=== PATIENT | female | born 1955 | race Caucasian/White ===

== ENCOUNTER 2018-01-28 13:23 | Emergency (ER) | payer OTHER ==
[~2018-01-28] VITALS: Ht 160 cm; Wt 76.2 kg
--- NOTE | ~2018-01-28 | EKG ---
[place], [place] ELECTROCARDIOGRAM REPORT NAME: CRAIG CERRATO UNIT #: [id number] ROOM: DOCTOR: EPIPHBUCKY DRAFT REPORT BIRTHDATE: [birth year] [facility] Test Date: 2018-01-28 Test Time: 14:57:56 Pat Name: CRAIG CERRATO Department: Room: Gender: F Transportation Services Representative: : 1955 Requested By: KATE BUSH Order Number: [id number] Reading MD: Beau Nuno MD Measurements Intervals [place] Rate: 56 P: 54 MS: 156 QRS: 52 QRSD: 95 T: 43 QT: 448 QTc: 433 Interpretive Statements Sinus rhythm Borderline T abnormalities, anterior leads Electronically Signed On 01-28-2018 21:43:05 PDT by Beau Nuno MD CM:EKGRPT:ELECTROCARDIOGRAM REPORT [id number] KATE ULLOA DRAFT REPORT KATE LYONS
[~2018-01-28 13:23] MED LIST: 'PARAFON FORTE500 M1 PO; ALPRAZOLAM XR0.5 MG PO; ANTIVERT25 MG PO; B12,B-12,B 12500 MC1 PO; CARVEDILOL3.125 MG PO; CLARITIN10 MG PO; CYCLOBENZAPRINE10 MG PO; FLUOXETINE40 MG PO; LEVOTHYROXINE0.05 MG PO; LOVASTATIN40 MG PO; MIRALAX POWDER17 G1 PO; NAPROSYN500 MG PO; PERCOCET 325 MG1 TA2 PO; PRAVACHOL20 MG PO; PROMETHAZINE PO; PROTONIX40 MG PO; PROVENTIL0.09 MG/AC IH; SINGULAIR10 MG PO; SYNTHROID,LEVO88 MCG PO; Synthroid,Lev100 MCG PO; TRAMADOL HCL50 MG; ULTRAM50 MG PO; VICODIN ES 7501 TAB PO; VOLTAREN50 M1 PO; ZITHROMAX Z PA250 MG PO; ZOFRAN ODT4 MG SL
[2018-01-28] MEDS ORDERED: ASPIRIN ADULT L81 M1 PO (13:54)
[2018-01-28 15:11] LABS: HEMATOCRIT 32.5 % (37.0-47.0); HEMOGLOBIN 10.7 g/dl (12.0-16.0); MEAN CELL VOLUME 88.8 fl (81.0-99.0); MEAN CORPUSCULAR HGB 29.2 pg (27.0-31.0); MEAN CORPUSCULAR HGB CONC 32.9 g/dl (33.0-37.0); MEAN PLATELET VOLUME 9.1 fl (9.6-12.3); PLATELET COUNT AUTOMATED 181 10*3/uL (130-400); RED BLOOD COUNT 3.66 10*6/uL (4.10-5.10); RED CELL DISTRI WIDTH 12.7 % (0-14.5); WHITE BLOOD COUNT 2.6 10*3/uL (4.8-10.8)
[2018-01-28 15:23] LABS: BILIRUBIN NEGATIVE (NEGATIVE); BLOOD TRACE-INTACT (NEGATIVE); CLARITY CLEAR (CLEAR); COLOR YELLOW (YELLOW); GLUCOSE NEGATIVE (NEGATIVE); KETONE TRACE (NEGATIVE); LEUKO ESTERASE NEGATIVE (NEGATIVE); NITRITE NEGATIVE (NEGATIVE); PH 5.5 (5.0-9.0); SPECIFIC GRAVITY 1.025 (1.005-1.030); UROBILINOGEN 0.2 E.U./dl (0.2-1.0)
[2018-01-28 15:27] LABS: ALBUMIN 3.7 gm/dl (3.1-4.5); ALKALINE PHOSPHATASE 92 U/L (45-117); BUN 10 mg/dl (7-24); CHLORIDE 108 mmol/L (98-107); CREATININE 1.03 mg/dL (0.55-1.02); LIPASE 155 U/L (73-393); POTASSIUM 3.3 mmol/L (3.5-5.1); SGOT/AST 12 IU/L (3-35); SGPT/ALT 10 U/L (12-78); SODIUM 144 mmol/L (136-145); TOTAL PROTEIN 7.2 gm/dL (6.4-8.2); TROPONIN I < 0.015 ng/ml (<0.045)
[2018-01-28 15:31] LABS: ACT PARTIAL THROMBO TIME 22.7 SECONDS (20.8-31.5)
[2018-01-28 15:39] LABS: ATYPICAL LYMPHS 1 % (0-0); BASOPHILS 3 % (0-1); PLATELET SUFFICIENCY NORMAL (NORMAL); TOTAL CELLS COUNTED 100 #CELLS
[2018-01-28 15:40] LABS: MUCOUS 1+
[2018-01-28 15:41] LABS: BACTERIA TRACE; EPITHELIAL CELLS 50-60; FINE GRANULAR CAST 0-2
[2018-01-28] MEDS ORDERED: MEDI-MECLIZINE25 MG PO (16:30)
== END 2018-01-28 16:30 | disposition home or self-care (01) ==
LOC: ED 13:23
PROVIDERS: Physician Assistant
DX: S40.012A Contusion of left shoulder, initial encounter (principal); R42 Dizziness and giddiness; Z79.899 Other long term (current) drug therapy; Z79.82 Long term (current) use of aspirin; Z88.8 Allergy status to other drugs, medicaments and biological substances; W19.XXXA Unspecified fall, initial encounter; Y93.89 Activity, other specified; Y92.89 Other specified places as the place of occurrence of the external cause; Y99.8 Other external cause status

== ENCOUNTER → 2018-07-11 | Outpatient (CLI) | payer OTHER ==
[~2018-07-11] MED LIST changes: +ASPIRIN ADULT L81 M1 PO; +MEDI-MECLIZINE25 MG PO
== END | disposition home or self-care (01) ==
LOC: ORTHO 03:29
DX: M25.511 Pain in right shoulder (principal); M25.522 Pain in left elbow

== ENCOUNTER → 2018-07-18 | Outpatient (CLI) | payer OTHER | LOC: MRI 09:51 | DX: M75.101 Unspecified rotator cuff tear or rupture of right shoulder, not specified as traumatic (principal); M19.011 Primary osteoarthritis, right shoulder ==

== ENCOUNTER → 2018-07-28 | Outpatient (CLI) | payer OTHER | END | disposition home or self-care (01) | LOC: US 15:58 | DX: E03.9 Hypothyroidism, unspecified (principal); E04.9 Nontoxic goiter, unspecified; R49.0 Dysphonia ==

== ENCOUNTER 2018-08-30 12:53 | Emergency (ER) | payer OTHER ==
[~2018-08-30] VITALS: Ht 160 cm; Wt 76.2 kg
== END 2018-08-30 13:28 | disposition home or self-care (01) ==
LOC: ED 12:53
DX: G89.29 Other chronic pain (principal); M25.511 Pain in right shoulder; M25.512 Pain in left shoulder; Z88.8 Allergy status to other drugs, medicaments and biological substances; Z79.899 Other long term (current) drug therapy; Z79.82 Long term (current) use of aspirin; Z90.710 Acquired absence of both cervix and uterus; Z90.49 Acquired absence of other specified parts of digestive tract

== ENCOUNTER 2018-11-02 16:00 | Emergency (ER) | payer OTHER ==
[~2018-11-02] VITALS: Ht 160 cm; Wt 76.7 kg
[2018-11-02 16:01] VITALS: BP 163/114
[2018-11-02 17:19] LABS: BASO % 1.2 % (0.0-1.0); EOS # 0.1 10*3/uL (0.0-0.4); EOS % 2.4 % (1.0-4.0); HEMATOCRIT 31.1 % (37.0-47.0); HEMOGLOBIN 10.1 g/dl (12.0-16.0); LYMPH # 1.1 10*3/uL (1.3-4.4); LYMPH % 44.7 % (27.0-41.0); MEAN CELL VOLUME 83.2 fl (81.0-99.0); MEAN CORPUSCULAR HGB CONC 32.5 g/dl (33.0-37.0); MEAN PLATELET VOLUME 8.8 fl (9.6-12.3); MONO # 0.2 10*3/uL (0.1-1.0); NEUT # 1.1 10*3/uL (2.3-7.9); NEUT % 42.7 % (47.0-73.0); PLATELET COUNT AUTOMATED 238 10*3/uL (130-400); RED BLOOD COUNT 3.74 10*6/uL (4.10-5.10); RED CELL DISTRI WIDTH 12.8 % (0-14.5); WHITE BLOOD COUNT 2.6 10*3/uL (4.8-10.8)
[2018-11-02 17:33] LABS: ALBUMIN 2.9 gm/dl (3.1-4.5); ALKALINE PHOSPHATASE 102 U/L (45-117); BUN 11 mg/dl (7-24); CHLORIDE 107 mmol/L (98-107); CREATININE 1.03 mg/dL (0.55-1.02); POTASSIUM 3.4 mmol/L (3.5-5.1); SGOT/AST 13 IU/L (3-35); SGPT/ALT 10 U/L (12-78); SODIUM 142 mmol/L (136-145); TOTAL PROTEIN 7.2 gm/dL (6.4-8.2)
== END 2018-11-02 18:08 | disposition home or self-care (01) ==
LOC: ED 16:00
PROVIDERS: Physician Assistant
DX: M25.561 Pain in right knee (principal); M25.562 Pain in left knee; D72.819 Decreased white blood cell count, unspecified; R68.89 Other general symptoms and signs; R25.1 Tremor, unspecified; Z90.710 Acquired absence of both cervix and uterus; Z90.49 Acquired absence of other specified parts of digestive tract; Z88.8 Allergy status to other drugs, medicaments and biological substances; Z79.899 Other long term (current) drug therapy; Z79.82 Long term (current) use of aspirin

== ENCOUNTER → 2018-11-21 | Outpatient (CLI) | payer OTHER ==
[2018-11-21 17:56] LABS: BASO % 1.3 % (0.0-1.0); EOS # 0.1 10*3/uL (0.0-0.4); EOS % 1.9 % (1.0-4.0); HEMATOCRIT 31.3 % (37.0-47.0); HEMOGLOBIN 9.6 g/dl (12.0-16.0); LYMPH # 1.2 10*3/uL (1.3-4.4); LYMPH % 37.7 % (27.0-41.0); MEAN CELL VOLUME 83.9 fl (81.0-99.0); MEAN CORPUSCULAR HGB 25.7 pg (27.0-31.0); MEAN CORPUSCULAR HGB CONC 30.7 g/dl (33.0-37.0); MEAN PLATELET VOLUME 9.5 fl (9.6-12.3); MONO # 0.3 10*3/uL (0.1-1.0); MONO % 10.9 % (3.0-9.0); NEUT # 1.5 10*3/uL (2.3-7.9); NEUT % 48.2 % (47.0-73.0); PLATELET COUNT AUTOMATED 332 10*3/uL (130-400); RED BLOOD COUNT 3.73 10*6/uL (4.10-5.10); RED CELL DISTRI WIDTH 13.2 % (0-14.5); WHITE BLOOD COUNT 3.1 10*3/uL (4.8-10.8)
[2018-11-22 08:09] LABS: HEPATITIS B SURFACE AG Negative (Negative); HEPATITIS C VIRUS ANTIBODY <0.1 s/co (0.0-0.9); RHEUMATOID ARTHRITIS FACTOR 427.6 IU/mL (0.0-13.9)
[2018-11-22 13:06] LABS: ANTI-RNP ANTIBODIES 0.4 AI (0.0-0.9)
[2018-11-23 00:09] LABS: CCP ANTIBODIES IGG/IGA >250 units (0-19); LUPUS DRVVT 45.7 sec (0.0-47.0); PTT-LA 32.2 sec (0.0-51.9)
[2018-11-23 01:06] LABS: LUPUS REFLEX INTERPRETATION Comment: (.)
[2018-11-24 11:05] LABS: HLA-B27 ANTIGEN Negative (.)
== END | disposition home or self-care (01) ==
LOC: LAB 16:55
PROVIDERS: Orthopaedic Surgery
DX: M25.50 Pain in unspecified joint (principal)

== ENCOUNTER 2019-09-28 21:55 | Emergency (ER) | payer OTHER, MEDICAID ==
[~2019-09-28] VITALS: Ht 160 cm; Wt 72.6 kg
[2019-09-28 22:04] VITALS: BP 151/70
== END 2019-09-29 01:30 | disposition home or self-care (01) ==
LOC: ED 21:55
DX: M25.512 Pain in left shoulder (principal); J45.909 Unspecified asthma, uncomplicated; I10 Essential (primary) hypertension; E78.5 Hyperlipidemia, unspecified; E03.9 Hypothyroidism, unspecified; M06.9 Rheumatoid arthritis, unspecified; Z88.8 Allergy status to other drugs, medicaments and biological substances; Z91.040 Latex allergy status; Z88.0 Allergy status to penicillin; Z79.899 Other long term (current) drug therapy; Z79.82 Long term (current) use of aspirin; X58.XXXA Exposure to other specified factors, initial encounter; Y93.89 Activity, other specified; Y92.89 Other specified places as the place of occurrence of the external cause; Y99.8 Other external cause status

== ENCOUNTER 2020-03-12 13:34 | Emergency (ER) | payer OTHER, MEDICAID ==
[~2020-03-12] VITALS: Ht 160 cm
[2020-03-12 14:36] LABS: HEMATOCRIT 31.6 % (37.0-47.0); MEAN CELL VOLUME 91.6 fl (81.0-99.0); MEAN CORPUSCULAR HGB 29.6 pg (27.0-31.0); MEAN CORPUSCULAR HGB CONC 32.3 g/dl (33.0-37.0); PLATELET COUNT AUTOMATED 185 10*3/uL (130-400); RED BLOOD COUNT 3.45 10*6/uL (4.10-5.10); RED CELL DISTRI WIDTH 12.8 % (0-14.5); WHITE BLOOD COUNT 2.3 10*3/uL (4.8-10.8)
[2020-03-12 14:51] LABS: ACT PARTIAL THROMBO TIME 24.2 SECONDS (20.0-32.1)
[2020-03-12 15:00] LABS: ALBUMIN 3.5 gm/dl (3.1-4.5); ALKALINE PHOSPHATASE 109 U/L (45-117); BUN 13 mg/dl (7-24); CHLORIDE 109 mmol/L (98-107); CREATININE 0.98 mg/dL (0.55-1.02); LIPASE 127 U/L (73-393); POTASSIUM 3.5 mmol/L (3.5-5.1); SGOT/AST 8 IU/L (3-35); SGPT/ALT 14 U/L (12-78); SODIUM 142 mmol/L (136-145); TOTAL PROTEIN 7.1 gm/dL (6.4-8.2)
[2020-03-12 15:02] LABS: PLATELET SUFFICIENCY NORMAL (NORMAL); TOTAL CELLS COUNTED 100 #CELLS
[2020-03-12 15:03] LABS: TROPONIN I < 0.015 ng/ml (<0.045)
[2020-03-12 15:49] VITALS: BP 150/56
[2020-03-12 16:11] LABS: COLOR YELLOW (YELLOW)
[2020-03-12 16:12] LABS: BACTERIA 1+; BILIRUBIN NEGATIVE; BLOOD NEGATIVE (NEGATIVE); CLARITY CLEAR (CLEAR); EPITHELIAL CELLS 41-50; GLUCOSE NEGATIVE; KETONE TRACE; LEUKO ESTERASE TRACE (NEGATIVE); NITRITE NEGATIVE (NEGATIVE); RBC 0-2 rbc/hpf (0-2); SPECIFIC GRAVITY 1.025 (1.001-1.030)
== END 2020-03-12 16:47 | disposition left against medical advice (07) ==
LOC: ED 13:34
PROVIDERS: Nurse Practitioner Family
DX: R55 Syncope and collapse (principal); M54.2 Cervicalgia; R51 Headache; M25.511 Pain in right shoulder; M25.512 Pain in left shoulder; E03.9 Hypothyroidism, unspecified; I10 Essential (primary) hypertension; J45.909 Unspecified asthma, uncomplicated; I48.91 Unspecified atrial fibrillation; Z79.899 Other long term (current) drug therapy; Z79.82 Long term (current) use of aspirin; Z88.8 Allergy status to other drugs, medicaments and biological substances; Z91.040 Latex allergy status; Z88.0 Allergy status to penicillin

== ENCOUNTER 2020-07-30 11:52 | Emergency (ER) | payer OTHER, MEDICAID ==
[~2020-07-30] VITALS: Ht 160 cm; Wt 75.3 kg
[2020-07-30 12:02] VITALS: BP 127/67
[2020-07-30 12:35] LABS: BASO % 1.2 % (0.0-1.0); EOS # 0.1 10*3/uL (0.0-0.4); HEMATOCRIT 32.6 % (37.0-47.0); LYMPH % 40.6 % (27.0-41.0); MEAN CELL VOLUME 86.5 fl (81.0-99.0); MEAN CORPUSCULAR HGB 27.1 pg (27.0-31.0); MEAN CORPUSCULAR HGB CONC 31.3 g/dl (33.0-37.0); MEAN PLATELET VOLUME 8.8 fl (9.6-12.3); MONO # 0.3 10*3/uL (0.1-1.0); NEUT # 1.1 10*3/uL (2.3-7.9); NEUT % 45.8 % (47.0-73.0); PLATELET COUNT AUTOMATED 263 10*3/uL (130-400); RED BLOOD COUNT 3.77 10*6/uL (4.10-5.10); RED CELL DISTRI WIDTH 12.5 % (0-14.5); WHITE BLOOD COUNT 2.5 10*3/uL (4.8-10.8)
[2020-07-30 12:48] LABS: ACT PARTIAL THROMBO TIME 23.8 SECONDS (20.0-32.1)
[2020-07-30 12:53] LABS: ALBUMIN 3.1 gm/dl (3.1-4.5); BUN 19 mg/dl (7-24); CHLORIDE 108 mmol/L (98-107); CREATININE 1.05 mg/dL (0.55-1.02); LIPASE 127 U/L (73-393); POTASSIUM 4.1 mmol/L (3.5-5.1); SGOT/AST 13 IU/L (3-35); SGPT/ALT 12 U/L (12-78); SODIUM 140 mmol/L (136-145); TOTAL PROTEIN 7.3 gm/dL (6.4-8.2)
[2020-07-30 12:54] LABS: ALKALINE PHOSPHATASE 109 U/L (45-117)
[2020-07-30 13:01] LABS: TROPONIN I < 0.015 ng/ml (<0.045)
[2020-07-30] MEDS ORDERED: PREDNISONE10 MG PO (13:32)
== END 2020-07-30 14:15 | disposition home or self-care (01) ==
LOC: ED 11:52
PROVIDERS: Family Medicine
DX: M06.9 Rheumatoid arthritis, unspecified (principal); R79.1 Abnormal coagulation profile; Z91.040 Latex allergy status; Z88.0 Allergy status to penicillin; Z88.8 Allergy status to other drugs, medicaments and biological substances; Z79.899 Other long term (current) drug therapy; Z79.82 Long term (current) use of aspirin

== ENCOUNTER → 2020-11-20 | Outpatient (CLI) | payer OTHER ==
[~2020-11-20] MED LIST changes: +PREDNISONE10 MG PO
[2020-11-20 09:29] LABS: BASO % 0.5 % (0.0-1.0); EOS # 0.1 10*3/uL (0.0-0.4); EOS % 1.6 % (1.0-4.0); HEMATOCRIT 35.8 % (37.0-47.0); LYMPH # 1.8 10*3/uL (1.3-4.4); LYMPH % 22.5 % (27.0-41.0); MEAN CELL VOLUME 87.7 fl (81.0-99.0); MEAN CORPUSCULAR HGB 27.2 pg (27.0-31.0); MEAN PLATELET VOLUME 9.1 fl (9.6-12.3); MONO # 0.4 10*3/uL (0.1-1.0); NEUT # 5.6 10*3/uL (2.3-7.9); NEUT % 70.3 % (47.0-73.0); PLATELET COUNT AUTOMATED 292 10*3/uL (130-400); RED BLOOD COUNT 4.08 10*6/uL (4.10-5.10); RED CELL DISTRI WIDTH 13.6 % (0-14.5); WHITE BLOOD COUNT 7.9 10*3/uL (4.8-10.8)
[2020-11-20 09:48] LABS: ALBUMIN 3.1 gm/dl (3.1-4.5); BUN 16 mg/dl (7-24); CHLORIDE 109 mmol/L (98-107); CHOLESTEROL 170 mg/dL (<200); POTASSIUM 3.5 mmol/L (3.5-5.1); SGOT/AST 8 IU/L (3-35); SGPT/ALT 11 U/L (12-78); SODIUM 141 mmol/L (136-145); TRIGLYCERIDES 97 mg/dl (<150)
[2020-11-20 09:54] LABS: FERRITIN 54.8 ng/mL (10.0-291.0)
[2020-11-20 09:56] LABS: ALKALINE PHOSPHATASE 97 U/L (45-117); CREATININE 1.02 mg/dL (0.55-1.02); FREE T4 0.86 ng/dl (0.76-1.46); IRON 36 ug/dL (50-170); LDL CHOLESTEROL 94 mg/dL (9-159); TOTAL IRON BINDING CAPACITY 293 ug/dl (250-450); TOTAL PROTEIN 7.4 gm/dL (6.4-8.2)
== END | disposition home or self-care (01) ==
LOC: RAD 11-19 13:30 → LAB 08:05 → RAD 08:30
PROVIDERS: Nurse Practitioner Family; ATTEND Internal Medicine Allergy & Immunology
DX: M85.88 Other specified disorders of bone density and structure, other site (principal); E03.9 Hypothyroidism, unspecified; D50.9 Iron deficiency anemia, unspecified; D72.819 Decreased white blood cell count, unspecified; E78.00 Pure hypercholesterolemia, unspecified; D64.9 Anemia, unspecified; Z78.0 Asymptomatic menopausal state; Z22.7 Latent tuberculosis; Z90.49 Acquired absence of other specified parts of digestive tract; Z96.611 Presence of right artificial shoulder joint

== ENCOUNTER → 2021-01-24 | Outpatient (CLI) | payer OTHER, MEDICAID ==
[2021-01-24 13:04] LABS: BASO % 0.8 % (0.0-1.0); EOS # 0.2 10*3/uL (0.0-0.4); HEMATOCRIT 37.1 % (37.0-47.0); LYMPH # 2.4 10*3/uL (1.3-4.4); LYMPH % 47.6 % (27.0-41.0); MEAN CELL VOLUME 88.5 fl (81.0-99.0); MEAN CORPUSCULAR HGB 27.7 pg (27.0-31.0); MEAN CORPUSCULAR HGB CONC 31.3 g/dl (33.0-37.0); MEAN PLATELET VOLUME 9.4 fl (9.6-12.3); MONO # 0.3 10*3/uL (0.1-1.0); MONO % 5.9 % (3.0-9.0); NEUT # 2.2 10*3/uL (2.3-7.9); NEUT % 42.5 % (47.0-73.0); PLATELET COUNT AUTOMATED 209 10*3/uL (130-400); RED BLOOD COUNT 4.19 10*6/uL (4.10-5.10); RED CELL DISTRI WIDTH 13.5 % (0-14.5); WHITE BLOOD COUNT 5.1 10*3/uL (4.8-10.8)
[2021-01-24 13:35] LABS: ALBUMIN 3.9 gm/dl (3.1-4.5); ALKALINE PHOSPHATASE 85 U/L (45-117); BUN 11 mg/dl (7-24); CHLORIDE 109 mmol/L (98-107); POTASSIUM 3.9 mmol/L (3.5-5.1); SGOT/AST 27 IU/L (3-35); SGPT/ALT 22 U/L (12-78); SODIUM 138 mmol/L (136-145); TOTAL PROTEIN 7.5 gm/dL (6.4-8.2)
== END | disposition home or self-care (01) ==
LOC: LAB 12:39
PROVIDERS: ATTEND Physician Assistant
DX: M05.741 Rheumatoid arthritis with rheumatoid factor of right hand without organ or systems involvement (principal); M05.742 Rheumatoid arthritis with rheumatoid factor of left hand without organ or systems involvement; Z22.7 Latent tuberculosis; Z79.899 Other long term (current) drug therapy

== ENCOUNTER → 2021-03-17 | Outpatient (CLI) | payer OTHER, MEDICAID ==
[2021-03-17 12:13] LABS: BASO % 0.8 % (0.0-1.0); EOS # 0.1 10*3/uL (0.0-0.4); EOS % 2.1 % (1.0-4.0); HEMATOCRIT 33.7 % (37.0-47.0); LYMPH # 1.5 10*3/uL (1.3-4.4); LYMPH % 39.4 % (27.0-41.0); MEAN CELL VOLUME 90.3 fl (81.0-99.0); MEAN CORPUSCULAR HGB 29.5 pg (27.0-31.0); MEAN CORPUSCULAR HGB CONC 32.6 g/dl (33.0-37.0); MEAN PLATELET VOLUME 9.8 fl (9.6-12.3); MONO # 0.3 10*3/uL (0.1-1.0); MONO % 7.2 % (3.0-9.0); NEUT # 1.9 10*3/uL (2.3-7.9); NEUT % 50.2 % (47.0-73.0); PLATELET COUNT AUTOMATED 197 10*3/uL (130-400); RED BLOOD COUNT 3.73 10*6/uL (4.10-5.10); RED CELL DISTRI WIDTH 13.3 % (0-14.5); WHITE BLOOD COUNT 3.7 10*3/uL (4.8-10.8)
[2021-03-17 12:26] LABS: ALBUMIN 3.8 gm/dl (3.1-4.5); ALKALINE PHOSPHATASE 60 U/L (45-117); BUN 12 mg/dl (7-24); CHLORIDE 110 mmol/L (98-107); CREATININE 0.93 mg/dL (0.55-1.02); POTASSIUM 4.1 mmol/L (3.5-5.1); SGOT/AST 24 IU/L (3-35); SGPT/ALT 25 U/L (12-78); SODIUM 142 mmol/L (136-145); TOTAL PROTEIN 6.9 gm/dL (6.4-8.2)
== END | disposition home or self-care (01) ==
LOC: LAB 11:07
PROVIDERS: ATTEND Internal Medicine Allergy & Immunology
DX: Z22.7 Latent tuberculosis (principal); Z79.899 Other long term (current) drug therapy

== ENCOUNTER → 2021-12-10 | Outpatient (CLI) | payer OTHER, MEDICAID ==
[2021-12-10 13:16] LABS: BASO % 0.7 % (0.0-1.0); EOS # 0.1 10*3/uL (0.0-0.4); EOS % 1.5 % (1.0-4.0); HEMATOCRIT 35.7 % (37.0-47.0); LYMPH # 1.3 10*3/uL (1.3-4.4); LYMPH % 27.7 % (27.0-41.0); MEAN CELL VOLUME 93.7 fl (81.0-99.0); MEAN CORPUSCULAR HGB 30.7 pg (27.0-31.0); MEAN CORPUSCULAR HGB CONC 32.8 g/dl (33.0-37.0); MEAN PLATELET VOLUME 9.1 fl (9.6-12.3); MONO # 0.3 10*3/uL (0.1-1.0); MONO % 5.7 % (3.0-9.0); NEUT # 2.9 10*3/uL (2.3-7.9); NEUT % 64.2 % (47.0-73.0); PLATELET COUNT AUTOMATED 263 10*3/uL (130-400); RED BLOOD COUNT 3.81 10*6/uL (4.10-5.10); RED CELL DISTRI WIDTH 11.2 % (0-14.5); WHITE BLOOD COUNT 4.6 10*3/uL (4.8-10.8)
[2021-12-10 13:34] LABS: BUN 15 mg/dl (7-24); CHLORIDE 106 mmol/L (98-107); CREATININE 1.15 mg/dL (0.55-1.02); POTASSIUM 4.2 mmol/L (3.5-5.1); SGOT/AST 28 IU/L (3-35); SODIUM 140 mmol/L (136-145); TOTAL PROTEIN 7.7 gm/dL (6.4-8.2)
[2021-12-10 13:35] LABS: ALKALINE PHOSPHATASE 95 U/L (45-117); SGPT/ALT 27 U/L (12-78)
== END | disposition home or self-care (01) ==
LOC: LAB 13:00
PROVIDERS: ATTEND Physician Assistant
DX: M05.741 Rheumatoid arthritis with rheumatoid factor of right hand without organ or systems involvement (principal); M05.742 Rheumatoid arthritis with rheumatoid factor of left hand without organ or systems involvement; Z79.899 Other long term (current) drug therapy

== ENCOUNTER → 2022-01-16 | Outpatient (CLI) | payer OTHER, MEDICAID ==
[2022-01-16 11:13] LABS: BASO % 0.8 % (0.0-1.0); EOS # 0.1 10*3/uL (0.0-0.4); EOS % 2.3 % (1.0-4.0); HEMATOCRIT 34.9 % (37.0-47.0); LYMPH % 25.8 % (27.0-41.0); MEAN CELL VOLUME 94.8 fl (81.0-99.0); MEAN CORPUSCULAR HGB 30.7 pg (27.0-31.0); MEAN CORPUSCULAR HGB CONC 32.4 g/dl (33.0-37.0); MEAN PLATELET VOLUME 9.3 fl (9.6-12.3); MONO # 0.2 10*3/uL (0.1-1.0); MONO % 5.1 % (3.0-9.0); NEUT # 2.6 10*3/uL (2.3-7.9); NEUT % 65.7 % (47.0-73.0); PLATELET COUNT AUTOMATED 245 10*3/uL (130-400); RED BLOOD COUNT 3.68 10*6/uL (4.10-5.10)
[2022-01-16 11:45] LABS: ALKALINE PHOSPHATASE 85 U/L (45-117); BUN 11 mg/dl (7-24); CHLORIDE 109 mmol/L (98-107); CHOLESTEROL 241 mg/dL (<200); CREATININE 0.94 mg/dL (0.55-1.02); LDL CHOLESTEROL 145 mg/dL (9-159); POTASSIUM 4.3 mmol/L (3.5-5.1); SGOT/AST 45 IU/L (3-35); SGPT/ALT 41 U/L (12-78); SODIUM 142 mmol/L (136-145); TOTAL PROTEIN 7.1 gm/dL (6.4-8.2); TRIGLYCERIDES 178 mg/dl (<150)
== END | disposition home or self-care (01) ==
LOC: LAB 10:53
PROVIDERS: ATTEND Nurse Practitioner Family
DX: E78.00 Pure hypercholesterolemia, unspecified (principal); D51.9 Vitamin B12 deficiency anemia, unspecified; E03.9 Hypothyroidism, unspecified; I10 Essential (primary) hypertension

== ENCOUNTER → 2022-03-11 | Outpatient (CLI) | payer OTHER, MEDICAID ==
[2022-03-11 09:36] LABS: BASO % 0.9 % (0.0-1.0); EOS # 0.1 10*3/uL (0.0-0.4); EOS % 2.5 % (1.0-4.0); HEMATOCRIT 33.8 % (37.0-47.0); LYMPH # 1.1 10*3/uL (1.3-4.4); LYMPH % 34.4 % (27.0-41.0); MEAN CELL VOLUME 94.2 fl (81.0-99.0); MEAN CORPUSCULAR HGB 31.2 pg (27.0-31.0); MEAN CORPUSCULAR HGB CONC 33.1 g/dl (33.0-37.0); MEAN PLATELET VOLUME 8.7 fl (9.6-12.3); MONO # 0.2 10*3/uL (0.1-1.0); MONO % 7.4 % (3.0-9.0); NEUT # 1.8 10*3/uL (2.3-7.9); NEUT % 54.8 % (47.0-73.0); PLATELET COUNT AUTOMATED 241 10*3/uL (130-400); RED BLOOD COUNT 3.59 10*6/uL (4.10-5.10); RED CELL DISTRI WIDTH 12.5 % (0-14.5); WHITE BLOOD COUNT 3.2 10*3/uL (4.8-10.8)
[2022-03-11 09:53] LABS: BUN 12 mg/dl (7-24); CHLORIDE 111 mmol/L (98-107); CREATININE 1.02 mg/dL (0.55-1.02); POTASSIUM 3.9 mmol/L (3.5-5.1); SGOT/AST 21 IU/L (3-35); SGPT/ALT 19 U/L (12-78); SODIUM 139 mmol/L (136-145); TOTAL PROTEIN 7.5 gm/dL (6.4-8.2)
[2022-03-11 09:54] LABS: ALKALINE PHOSPHATASE 77 U/L (45-117)
== END | disposition home or self-care (01) ==
LOC: LAB 09:19
PROVIDERS: ATTEND Physician Assistant
DX: M05.741 Rheumatoid arthritis with rheumatoid factor of right hand without organ or systems involvement (principal); M65.342 Trigger finger, left ring finger; M65.332 Trigger finger, left middle finger; M47.816 Spondylosis without myelopathy or radiculopathy, lumbar region; M05.742 Rheumatoid arthritis with rheumatoid factor of left hand without organ or systems involvement; M35.00 Sjogren syndrome, unspecified; Z79.899 Other long term (current) drug therapy

== ENCOUNTER 2022-07-30 12:52 | Emergency (ER) | payer OTHER, MEDICAID ==
[~2022-07-30] VITALS: Wt 75.3 kg
[2022-07-30 13:17] VITALS: BP 109/69
== END 2022-07-30 16:29 | disposition home or self-care (01) ==
LOC: ED 12:52
DX: D72.819 Decreased white blood cell count, unspecified (principal); Z90.710 Acquired absence of both cervix and uterus; Z90.49 Acquired absence of other specified parts of digestive tract; Z98.890 Other specified postprocedural states; Z79.899 Other long term (current) drug therapy; Z79.82 Long term (current) use of aspirin; Z88.8 Allergy status to other drugs, medicaments and biological substances

== ENCOUNTER → 2022-08-05 | Outpatient (CLI) | payer OTHER, MEDICAID ==
[2022-08-05 15:29] LABS: HEMATOCRIT 34.6 % (37.0-47.0); LYMPH % 20.8 % (27.0-41.0); MEAN CELL VOLUME 90.6 fl (81.0-99.0); MEAN CORPUSCULAR HGB 29.3 pg (27.0-31.0); MEAN CORPUSCULAR HGB CONC 32.4 g/dl (33.0-37.0); MEAN PLATELET VOLUME 9.1 fl (9.6-12.3); MONO # 0.2 10*3/uL (0.1-1.0); MONO % 3.3 % (3.0-9.0); NEUT # 3.5 10*3/uL (2.3-7.9); NEUT % 75.5 % (47.0-73.0); PLATELET COUNT AUTOMATED 332 10*3/uL (130-400); RED BLOOD COUNT 3.82 10*6/uL (4.10-5.10); WHITE BLOOD COUNT 4.6 10*3/uL (4.8-10.8)
[2022-08-05 15:48] LABS: ALKALINE PHOSPHATASE 74 U/L (46-116); BUN 18 mg/dl (9-23); CHLORIDE 102 mmol/L (98-107); POTASSIUM 3.7 mmol/L (3.4-5.1); SGPT/ALT 28 U/L (10-49); TOTAL PROTEIN 7.2 gm/dL (6.0-8.0)
== END | disposition home or self-care (01) ==
LOC: LAB 14:51
PROVIDERS: ATTEND Physician Assistant
DX: M05.741 Rheumatoid arthritis with rheumatoid factor of right hand without organ or systems involvement (principal); M05.742 Rheumatoid arthritis with rheumatoid factor of left hand without organ or systems involvement; M35.00 Sjogren syndrome, unspecified; M65.332 Trigger finger, left middle finger; M47.816 Spondylosis without myelopathy or radiculopathy, lumbar region; M17.0 Bilateral primary osteoarthritis of knee; M65.342 Trigger finger, left ring finger; Z79.899 Other long term (current) drug therapy

== ENCOUNTER → 2022-08-26 | Outpatient (CLI) | payer OTHER, MEDICAID | END | disposition home or self-care (01) | LOC: US 09:22 | PROVIDERS: ATTEND Internal Medicine Hematology & Oncology | DX: D72.819 Decreased white blood cell count, unspecified (principal); C56.9 Malignant neoplasm of unspecified ovary ==

== ENCOUNTER 2023-01-03 17:58 | Emergency (ER) | payer OTHER, MEDICAID ==
[~2023-01-03] VITALS: Ht 160 cm; Wt 75.7 kg
[2023-01-03 18:15] VITALS: BP 130/66
[2023-01-03] MEDS ORDERED: VIBRAMYCIN100 MG PO (19:22)
== END 2023-01-03 19:51 | disposition home or self-care (01) ==
LOC: ED 17:58
DX: S93.401A Sprain of unspecified ligament of right ankle, initial encounter (principal); S90.862A Insect bite (nonvenomous), left foot, initial encounter; R21 Rash and other nonspecific skin eruption; Z88.8 Allergy status to other drugs, medicaments and biological substances; Z79.82 Long term (current) use of aspirin; Z79.899 Other long term (current) drug therapy; Z90.49 Acquired absence of other specified parts of digestive tract; Z98.890 Other specified postprocedural states; Z90.711 Acquired absence of uterus with remaining cervical stump; W01.0XXA Fall on same level from slipping, tripping and stumbling without subsequent striking against object, initial encounter; Y93.89 Activity, other specified; Y92.89 Other specified places as the place of occurrence of the external cause; Y99.8 Other external cause status

== ENCOUNTER → 2023-03-03 | Outpatient (CLI) | payer OTHER, MEDICAID ==
[~2023-03-03] MED LIST changes: +VIBRAMYCIN100 MG PO
[2023-03-03 14:36] LABS: BASO % 1.3 % (0.0-1.0); EOS # 0.1 10*3/uL (0.0-0.4); EOS % 2.2 % (1.0-4.0); HEMATOCRIT 31.7 % (37.0-47.0); LYMPH # 0.9 10*3/uL (1.3-4.4); LYMPH % 39.5 % (27.0-41.0); MEAN CELL VOLUME 96.4 fl (81.0-99.0); MEAN CORPUSCULAR HGB CONC 32.2 g/dl (33.0-37.0); MEAN PLATELET VOLUME 9.1 fl (9.6-12.3); MONO # 0.2 10*3/uL (0.1-1.0); MONO % 10.3 % (3.0-9.0); NEUT % 46.7 % (47.0-73.0); PLATELET COUNT AUTOMATED 245 10*3/uL (130-400); RED BLOOD COUNT 3.29 10*6/uL (4.10-5.10); RED CELL DISTRI WIDTH 12.5 % (0-14.5); WHITE BLOOD COUNT 2.2 10*3/uL (4.8-10.8)
[2023-03-03 15:08] LABS: ALKALINE PHOSPHATASE 74 U/L (46-116); BUN 7 mg/dl (9-23); CHLORIDE 108 mmol/L (98-107); CHOLESTEROL 154 mg/dL (<200); LDL CHOLESTEROL 89 mg/dL (9-159); POTASSIUM 4.2 mmol/L (3.4-5.1); TOTAL PROTEIN 6.8 gm/dL (6.0-8.0); TRIGLYCERIDES 111 mg/dl (<150)
[2023-03-03 15:12] LABS: SGPT/ALT < 7 U/L (10-49)
[2023-03-03 15:33] LABS: FREE T4 1.14 ng/dl (0.89-1.76)
== END | disposition home or self-care (01) ==
LOC: LAB 14:19
PROVIDERS: ATTEND Nurse Practitioner Family
DX: E78.5 Hyperlipidemia, unspecified (principal); E55.9 Vitamin D deficiency, unspecified

== ENCOUNTER → 2023-07-20 | Outpatient (CLI) | payer OTHER, MEDICAID ==
[2023-07-20 13:11] LABS: POTASSIUM 4.2 mmol/L (3.4-5.1); TOTAL PROTEIN 7.6 gm/dL (6.0-8.0)
== END | disposition home or self-care (01) ==
LOC: LAB 12:31
PROVIDERS: ATTEND Nurse Practitioner Family
DX: I10 Essential (primary) hypertension (principal); E03.9 Hypothyroidism, unspecified; D50.9 Iron deficiency anemia, unspecified; F41.9 Anxiety disorder, unspecified; G47.00 Insomnia, unspecified; E78.5 Hyperlipidemia, unspecified; E78.00 Pure hypercholesterolemia, unspecified; Z79.899 Other long term (current) drug therapy

== ENCOUNTER 2024-02-24 14:05 | Emergency (ER) | payer MEDICARE ==
[~2024-02-24] VITALS: Ht 160 cm; Wt 74.4 kg
[2024-02-24 15:00] VITALS: BP 87/69
[2024-02-24] MEDS ORDERED: XELJANZ5 M1 PO (15:28)
[2024-02-24] MEDS ORDERED: OMEPRAZOLE MAGN20 M1 PO (15:29)
[2024-02-24 15:40] LABS: BASO % 0.3 % (0.0-1.0); EOS # 0.1 10*3/uL (0.0-0.4); HEMATOCRIT 31.5 % (37.0-47.0); LYMPH # 0.7 10*3/uL (1.3-4.4); MEAN CELL VOLUME 91.6 fl (81.0-99.0); MEAN CORPUSCULAR HGB 31.1 pg (27.0-31.0); MEAN PLATELET VOLUME 8.9 fl (9.6-12.3); MONO # 0.3 10*3/uL (0.1-1.0); MONO % 7.2 % (3.0-9.0); NEUT # 2.5 10*3/uL (2.3-7.9); NEUT % 71.2 % (47.0-73.0); PLATELET COUNT AUTOMATED 207 10*3/uL (130-400); RED BLOOD COUNT 3.44 10*6/uL (4.10-5.10); RED CELL DISTRI WIDTH 12.3 % (0-14.5); WHITE BLOOD COUNT 3.5 10*3/uL (4.8-10.8)
[2024-02-24 16:00] LABS: POTASSIUM 3.9 mmol/L (3.4-5.1)
== END 2024-02-24 17:59 | disposition home or self-care (01) ==
LOC: ED 14:05
PROVIDERS: Emergency Medicine
DX: S93.402A Sprain of unspecified ligament of left ankle, initial encounter (principal); S90.32XA Contusion of left foot, initial encounter; S89.92XA Unspecified injury of left lower leg, initial encounter; F32.A Depression, unspecified; I10 Essential (primary) hypertension; J45.909 Unspecified asthma, uncomplicated; I48.91 Unspecified atrial fibrillation; Z88.8 Allergy status to other drugs, medicaments and biological substances; Z90.49 Acquired absence of other specified parts of digestive tract; Z90.710 Acquired absence of both cervix and uterus; Z98.890 Other specified postprocedural states; W19.XXXA Unspecified fall, initial encounter; Y93.89 Activity, other specified; Y92.89 Other specified places as the place of occurrence of the external cause; Y99.8 Other external cause status

== ENCOUNTER 2024-09-18 02:44 | Emergency (ER) | payer MEDICARE ==
[~2024-09-18] VITALS: Ht 167.6 cm; Wt 72.6 kg
[~2024-09-18 02:44] MED LIST changes: +OMEPRAZOLE MAGN20 M1 PO; +XELJANZ5 M1 PO
[2024-09-18 02:52] VITALS: BP 164/81
[2024-09-18] MEDS ORDERED: Ondansetron Hydrochloride 4 MG TAB SL ONE (03:35)
[2024-09-18] MEDS ORDERED: Acetaminophen/Hydrocodone 5 MG/325 MG TABLET PO ONE ×2 (03:35→04:45)
[2024-09-18] MEDS ORDERED: HYDROCODONE-AC1 EAC1 PO (05:12)
== END 2024-09-18 05:14 | disposition home or self-care (01) ==
LOC: ED 02:44
DX: S52.592A Other fractures of lower end of left radius, initial encounter for closed fracture (principal); S00.83XA Contusion of other part of head, initial encounter; F32.A Depression, unspecified; I10 Essential (primary) hypertension; J45.909 Unspecified asthma, uncomplicated; M19.90 Unspecified osteoarthritis, unspecified site; I48.91 Unspecified atrial fibrillation; Z88.8 Allergy status to other drugs, medicaments and biological substances; Z90.49 Acquired absence of other specified parts of digestive tract; Z90.710 Acquired absence of both cervix and uterus; Z98.890 Other specified postprocedural states; W01.198A Fall on same level from slipping, tripping and stumbling with subsequent striking against other object, initial encounter; Y93.89 Activity, other specified; Y92.009 Unspecified place in unspecified non-institutional (private) residence as the place of occurrence of the external cause; Y99.8 Other external cause status

== ENCOUNTER 2024-09-20 00:27 | Emergency (ER) | payer MEDICARE ==
[~2024-09-20] VITALS: Ht 160 cm; Wt 74.8 kg
[~2024-09-20 00:27] MED LIST changes: +HYDROCODONE-AC1 EAC1 PO
[2024-09-20 00:36] VITALS: BP 114/66
[2024-09-20 00:53] LABS: BASO % 0.5 % (0.0-1.0); EOS # 0.1 10*3/uL (0.0-0.4); HEMATOCRIT 31.9 % (37.0-47.0); MEAN CELL VOLUME 94.4 fl (81.0-99.0); MEAN CORPUSCULAR HGB 29.9 pg (27.0-31.0); MEAN CORPUSCULAR HGB CONC 31.7 g/dl (33.0-37.0); MEAN PLATELET VOLUME 8.6 fl (9.6-12.3); MONO # 0.3 10*3/uL (0.1-1.0); MONO % 7.5 % (3.0-9.0); NEUT # 2.9 10*3/uL (2.3-7.9); NEUT % 73.2 % (47.0-73.0); PLATELET COUNT AUTOMATED 255 10*3/uL (130-400); RED BLOOD COUNT 3.38 10*6/uL (4.10-5.10); RED CELL DISTRI WIDTH 11.5 % (0-14.5)
[2024-09-20 01:12] LABS: BUN 11 mg/dl (9-23); CHLORIDE 100 mmol/L (98-107); POTASSIUM 4.2 mmol/L (3.4-5.1)
[2024-09-20 02:52] LABS: BILIRUBIN Negative (Negative); BLOOD Negative (Negative); CLARITY Clear (Clear); COLOR Yellow (Yellow); GLUCOSE Negative (Negative); KETONE Negative (Negative); LEUKO ESTERASE Negative (Negative); NITRITE Negative (Negative); SPECIFIC GRAVITY >= 1.030 (1.001-1.030)
[2024-09-20 02:58] LABS: BACTERIA 1+; EPITHELIAL CELLS 31-40
[2024-09-20] MEDS ORDERED: CELECOXIB100 M1 PO (14:37)
[2024-09-20] MEDS ORDERED: TRAZODONE100 MG PO (14:38)
[2024-09-20] MEDS ORDERED: METHOCARBAMOL500 M1 PO (14:38)
[2024-09-21] MEDS ORDERED: PERCOCET 5-3251 EACH PO (13:12)
== END 2024-09-20 03:18 | disposition home or self-care (01) ==
LOC: ED 00:27
PROVIDERS: Internal Medicine
DX: S06.0XAA Concussion with loss of consciousness status unknown, initial encounter (principal); R11.2 Nausea with vomiting, unspecified; R41.82 Altered mental status, unspecified; D64.9 Anemia, unspecified; F32.A Depression, unspecified; I10 Essential (primary) hypertension; J45.909 Unspecified asthma, uncomplicated; M19.90 Unspecified osteoarthritis, unspecified site; I48.91 Unspecified atrial fibrillation; Z88.8 Allergy status to other drugs, medicaments and biological substances; Z90.49 Acquired absence of other specified parts of digestive tract; Z90.710 Acquired absence of both cervix and uterus; Z98.890 Other specified postprocedural states; W01.10XA Fall on same level from slipping, tripping and stumbling with subsequent striking against unspecified object, initial encounter; Y93.89 Activity, other specified; Y92.009 Unspecified place in unspecified non-institutional (private) residence as the place of occurrence of the external cause; Y99.8 Other external cause status

== ENCOUNTER → 2024-09-21 | Day surgery (SDC) | payer MEDICARE ==
[2024-09-19 12:51] LABS: BUN 9 mg/dl (9-23); CHLORIDE 101 mmol/L (98-107); POTASSIUM 3.9 mmol/L (3.4-5.1)
[~2024-09-21] VITALS: Ht 160 cm; Wt 72.6 kg
[~2024-09-21] MED LIST changes: +CELECOXIB100 M1 PO; +Dexamethasone Sodium Phospha 4 MG/ML VIAL IV ONE; +Ketorolac Tromethamine 30 MG/ML VIAL IV ONE; +Lactated Ringer's Solution 1,000 ML IV ONE; +Lactated Ringer's Solution 1,000 ML IV SCH; +Lidocaine Hydrochloride 5 ML VIAL IV ONE; +METHOCARBAMOL500 M1 PO; +Midazolam Hydrochloride 2 MG/2 ML VIAL IV ONE; +Ondansetron Hydrochloride 4 MG/2 ML VIAL IV ONE; +PERCOCET 5-3251 EACH PO; +PROPOFOL 200 MG/20 ML VIAL IV ONE; +Ropivacaine Hydrochloride 5 MG/ML 20 ML AMP IJ ONE; +SEVOFLURANE 250 ML BOT INH ONE; +TRAZODONE100 MG PO; +ceFAZolin sodium 2GM/20ML IV ONE; +ceFAZolin sodium/sodium chlor 20 ML IV ONE; +fentaNYL CITRATE 100 MCG/2 ML VIAL IV ONE
[2024-09-21 11:35] VITALS: BP 162/64
[2024-09-21 14:25] VITALS: BP 146/71
[2024-09-21 14:40] VITALS: BP 148/66
[2024-09-21 14:52] VITALS: BP 142/73
[2024-09-21 15:12] VITALS: BP 153/74
[2024-09-21 15:24] VITALS: BP 150/71
== END | disposition home or self-care (01) ==
LOC: SDC 09-19 08:45
PROVIDERS: ATTEND Orthopaedic Surgery
DX: S52.572A Other intraarticular fracture of lower end of left radius, initial encounter for closed fracture (principal); I10 Essential (primary) hypertension; E03.9 Hypothyroidism, unspecified; J45.909 Unspecified asthma, uncomplicated; E78.00 Pure hypercholesterolemia, unspecified; F41.9 Anxiety disorder, unspecified; F32.A Depression, unspecified; I48.91 Unspecified atrial fibrillation; M06.9 Rheumatoid arthritis, unspecified; G89.18 Other acute postprocedural pain; Z85.43 Personal history of malignant neoplasm of ovary; Z85.41 Personal history of malignant neoplasm of cervix uteri; Z98.891 History of uterine scar from previous surgery; Z96.612 Presence of left artificial shoulder joint; Z98.890 Other specified postprocedural states; Z79.82 Long term (current) use of aspirin; Z79.890 Hormone replacement therapy; Z79.899 Other long term (current) drug therapy; Z88.8 Allergy status to other drugs, medicaments and biological substances; Z80.3 Family history of malignant neoplasm of breast; Z82.49 Family history of ischemic heart disease and other diseases of the circulatory system; X58.XXXA Exposure to other specified factors, initial encounter; Y93.89 Activity, other specified; Y92.89 Other specified places as the place of occurrence of the external cause; Y99.8 Other external cause status

== ENCOUNTER → 2024-10-06 | Outpatient (CLI) | payer MEDICARE ==
[~2024-10-06] MED LIST changes: -Dexamethasone Sodium Phospha 4 MG/ML VIAL IV ONE; -Ketorolac Tromethamine 30 MG/ML VIAL IV ONE; -Lactated Ringer's Solution 1,000 ML IV ONE; -Lactated Ringer's Solution 1,000 ML IV SCH; -Lidocaine Hydrochloride 5 ML VIAL IV ONE; -Midazolam Hydrochloride 2 MG/2 ML VIAL IV ONE; -Ondansetron Hydrochloride 4 MG/2 ML VIAL IV ONE; -PROPOFOL 200 MG/20 ML VIAL IV ONE; -Ropivacaine Hydrochloride 5 MG/ML 20 ML AMP IJ ONE; -SEVOFLURANE 250 ML BOT INH ONE; -ceFAZolin sodium 2GM/20ML IV ONE; -ceFAZolin sodium/sodium chlor 20 ML IV ONE; -fentaNYL CITRATE 100 MCG/2 ML VIAL IV ONE
== END | disposition home or self-care (01) ==
LOC: ORTHO 02:20
PROVIDERS: ATTEND Orthopaedic Surgery
DX: S52.572D Other intraarticular fracture of lower end of left radius, subsequent encounter for closed fracture with routine healing (principal); Z98.890 Other specified postprocedural states; X58.XXXD Exposure to other specified factors, subsequent encounter

== ENCOUNTER → 2024-10-25 | Outpatient (CLI) | payer MEDICARE | END | disposition home or self-care (01) | LOC: ORTHO 03:14 | PROVIDERS: ATTEND Orthopaedic Surgery | DX: M25.562 Pain in left knee (principal); M25.561 Pain in right knee ==

== ENCOUNTER → 2024-11-03 | Outpatient (CLI) | payer MEDICARE | END | disposition home or self-care (01) | LOC: ORTHO 05:09 | PROVIDERS: ATTEND Orthopaedic Surgery | DX: S52.572D Other intraarticular fracture of lower end of left radius, subsequent encounter for closed fracture with routine healing (principal); M25.532 Pain in left wrist; Z98.890 Other specified postprocedural states; X58.XXXD Exposure to other specified factors, subsequent encounter ==

== ENCOUNTER 2024-11-10 11:41 | Emergency (ER) | payer MEDICARE ==
[~2024-11-10] VITALS: Ht 160 cm; Wt 68.9 kg
[2024-11-10 11:48] VITALS: BP 156/67
[2024-11-10] MEDS ORDERED: PREDNISONE20 M1 PO (12:03)
== END 2024-11-10 12:11 | disposition home or self-care (01) ==
LOC: ED 11:41
DX: L25.9 Unspecified contact dermatitis, unspecified cause (principal); I10 Essential (primary) hypertension; F32.A Depression, unspecified; J45.909 Unspecified asthma, uncomplicated; Z79.82 Long term (current) use of aspirin; Z79.899 Other long term (current) drug therapy; Z88.8 Allergy status to other drugs, medicaments and biological substances; Z90.49 Acquired absence of other specified parts of digestive tract; Z90.710 Acquired absence of both cervix and uterus; Z98.890 Other specified postprocedural states

== ENCOUNTER 2025-05-21 13:19 | Emergency (ER) | payer MEDICARE ==
[~2025-05-21] VITALS: Ht 160 cm; Wt 64.4 kg
[~2025-05-21 13:19] MED LIST changes: +PREDNISONE20 M1 PO
[2025-05-21 13:33] VITALS: BP 126/77
[2025-05-21] MEDS ORDERED: SODIUM CHLORIDE 0.9% 1,000 ML IV ONE (13:55)
[2025-05-21 14:12] LABS: BASO # 0.0 10*3/uL (0.0-0.1); BASO % 0.8 % (0.0-1.0); EOS # 0.1 10*3/uL (0.0-0.4); EOS % 3.9 % (1.0-4.0); MEAN CELL VOLUME 86.9 fl (81.0-99.0); MEAN CORPUSCULAR HGB 27.5 pg (27.0-31.0); MEAN PLATELET VOLUME 8.2 fl (9.6-12.3); MONO # 0.3 10*3/uL (0.1-1.0); MONO % 8.0 % (3.0-9.0); NEUT # 1.9 10*3/uL (2.3-7.9); NEUT % 52.5 % (47.0-73.0); NUCLEATED RED BLOOD CELL 0.0 % (0.0-0.0); NUCLEATED RED BLOOD CELL 0.0 10*3/uL (0.0-0.0); PLATELET COUNT AUTOMATED 279 10*3/uL (130-400); RED CELL DISTRI WIDTH 12.8 % (0-14.5)
[2025-05-21 14:39] LABS: BUN 25 mg/dl (9-23)
[2025-05-21 14:40] LABS: SGPT/ALT < 7 U/L (5-49)
[2025-05-21 14:45] LABS: BILIRUBIN Negative (Negative); BLOOD Negative (Negative); CLARITY Clear (Clear); COLOR Yellow (Yellow); KETONE Trace (Negative); LEUKO ESTERASE Trace (Negative); NITRITE Negative (Negative); PH 6.0 (4.5-8.0); SPECIFIC GRAVITY 1.025 (1.001-1.030); UROBILINOGEN 1.0 E.U./dl (0.0-1.0)
[2025-05-21 15:08] LABS: MUCOUS 2+
[2025-05-21 15:09] LABS: BACTERIA 1+
== END 2025-05-21 17:33 | disposition home or self-care (01) ==
LOC: ED 13:19
PROVIDERS: Nurse Practitioner Family
DX: E86.0 Dehydration (principal); E03.9 Hypothyroidism, unspecified; F41.9 Anxiety disorder, unspecified; I48.91 Unspecified atrial fibrillation; F32.A Depression, unspecified; K21.9 Gastro-esophageal reflux disease without esophagitis; I10 Essential (primary) hypertension; J45.909 Unspecified asthma, uncomplicated; M06.9 Rheumatoid arthritis, unspecified; Z98.890 Other specified postprocedural states; Z90.49 Acquired absence of other specified parts of digestive tract; Z90.710 Acquired absence of both cervix and uterus; Z88.8 Allergy status to other drugs, medicaments and biological substances; Z79.899 Other long term (current) drug therapy